=== PATIENT | female | born 1985 | race Hispanic/Latino ===

== ENCOUNTER → 2022-07-03 15:52 | Outpatient (CLI) | payer OTHER, SELFPAY ==
--- NOTE | 2022-07-03 16:06 | DI.MRI.S_ITS ---
PROCEDURE: MR PELVIS WO CON INDICATIONS: PAIN IN RIGHT HIP TECHNIQUE: Noncontrast coronal and axial T1 spin echo and STIR through the bony pelvis. COMPARISON: None. FINDINGS: Image quality: Excellent. Bones: Bone marrow of the pelvic ring, sacrum, and proximal femurs demonstrate normal overall signal. No intraosseous lesions or fractures identified. The visualized lower lumbar spine appears normally aligned. Tendons: The gluteus medius and minimus tendons appear intact, without associated muscle atrophy. The nearby proximal iliotibial band also appears intact. The iliopsoas tendon appears intact, without adjacent bursal fluid collections or evidence for impingement syndrome. The origins of the hamstring tendons are intact at the ischial tuberosities, as well as the associated sacrotuberous ligaments. The straight and reflected heads of the rectus femoris muscle origin appear intact bilaterally, as well as the conjoint tendon. Soft tissues: Visualized muscles demonstrate normal bulk and internal signal. No joint effusions. Evaluation of the labrum is limited by the large field of view but no discrete labral tear or paralabral cysts are identified. There is a small amount of pelvic free fluid which appears within physiologic limits. Bladder wall thickness is normal. There is a T1 and T2 hypointense mass within the myometrium of the uterine fundus measuring up to 2.3 x 2.3 x 1.9 cm likely representing an intramural fibroid. This extends to the right aspect of the fundal endometrium suggesting a possible submucosal component. There is a linear filling defect within the endometrium consistent with an IUD, extending into the fundus. IMPRESSION: 1. No fractures, joint effusions, or other definite acute abnormality identified within the right hip. 2. Uterine fibroid demonstrated with a suspected submucosal component. Dictated by: Pool Dean M.D. on 07/04/2022 at 1:30 Approved by: Pool Dean M.D. on 07/04/2022 at 1:37
== END ==
PROVIDERS: Referring Provider Family Medicine; Visit Provider Family Medicine
DX: D25.9 Leiomyoma of uterus, unspecified (principal); M25.551 Pain in right hip
CPT/HCPCS: 72195